=== PATIENT | female | born 1990 | race Caucasian/White ===

== ENCOUNTER 2018-02-14 14:18 | Inpatient (IN) | payer OTHER ==
[2018-02-14] MEDS ORDERED: LIDOCAINE 1% (MPF) 30 ML INJ INJ (16:30)
[2018-02-14] MEDS ORDERED: BUTORPHANOL 2 MG INJ IV (16:30)
[2018-02-14] MEDS ORDERED: METHYLERGONOVINE 0.2 MG INJ IM (16:30)
[2018-02-14] MEDS ORDERED: OXYTOCIN 30 UNITS/LR 500 ML IV (16:30)
[2018-02-14] MEDS ORDERED: OXYCODONE/ASPIRIN (4.88/325) TAB PO (16:30)
[2018-02-14] MEDS ORDERED: MISOPROSTOL 200 MCG TAB PR (16:30)
[2018-02-14] MEDS ORDERED: CARBOPROST 250 MCG INJ IM (16:30)
[2018-02-14 17:20] LABS: RUPTURE FETAL MEMBRANES POSITIVE (NEGATIVE)
[2018-02-14] MEDS: LACTATED RINGER'S 1,000 ML IV ×2 (17:59→23:15)
[2018-02-14 18:55] LABS: ADD MAN DIFF? NO
[2018-02-14] MEDS: OXYTOCIN 30 UNITS/LR 500 ML IV (18:56)
[2018-02-14 19:02] LABS: BASOPHILS % 0.2 % (0.0-2.0); EOSINOPHILS % 0.4 % (0.0-7.0); HEMATOCRIT 37.4 % (37.0-47.0); HEMOGLOBIN 12.3 g/dl (12.0-16.0); LYMPHOCYTES % 12.4 % (15.0-51.0); MEAN CORPUSCULAR HEMOGLOBIN 28.8 pg (29.0-33.0); MEAN CORPUSCULAR HGB CONC 32.9 g/dl (32.0-37.0); MEAN CORPUSCULAR VOLUME 87.6 fl (82.0-101.0); MEAN PLATELET VOLUME 11.7 fl (7.4-10.4); MONOCYTE # 0.5 10^3/ul (0.3-0.9); MONOCYTES % 6.2 % (0.0-11.0); NEUTROPHIL # 6.6 10^3/ul (1.6-7.5); NEUTROPHILS % 80.4 % (39.0-77.0); PLATELET COUNT 134 10^3/UL (140-415); RED BLOOD COUNT 4.27 10^6/ul (4.20-5.40); RED CELL DISTRIBUTION WIDTH 13.5 % (11.5-14.5)
[2018-02-14 19:02] LABS: WHITE BLOOD COUNT 8.2 10^3/ul (4.8-10.8)
[2018-02-14 19:21] LABS: PROTIME 12.2 Sec (11.9-14.9)
[2018-02-14 19:22] LABS: PARTIAL THROMBOPLASTIN TIME 27.5 Sec (23.0-35.0)
[2018-02-15] MEDS ORDERED: LACTATED RINGER'S 1,000 ML IV (02:15)
[2018-02-15] MEDS ORDERED: FENTAnyl 2MCG/ML-ROPIV 0.2% 100 ML (02:21)
[2018-02-15] MEDS ORDERED: NALOXONE (0.4 MG/ML) INJ IV (02:30)
[2018-02-15] MEDS ORDERED: ONDANSETRON 4 MG INJ IV (02:30)
[2018-02-15] MEDS ORDERED: DIPHENHYDRAMINE 50 MG INJ IV (02:30)
[2018-02-15] MEDS: LACTATED RINGER'S 1,000 ML IV (06:58)
[2018-02-15] MEDS: FENTAnyl 2MCG/ML-ROPIV 0.2% 100 ML BAG EPI ×2 (08:13→09:01)
[2018-02-15] MEDS ORDERED: AMPICILLIN 2 GM/NS (PMX) 100 ML (09:53)
[2018-02-15] MEDS: AMPICILLIN 2 GM/NS (PMX) 100 ML IV (10:00)
[2018-02-15] MEDS: MINERAL OIL LIGHT 10 ML VIAL TOP (12:00)
[2018-02-15] MEDS ORDERED: AMPICILLIN 1 GM/NS (PMX) 50 ML IV (14:00)
[2018-02-15] MEDS: OXYTOCIN 30 UNITS/LR 500 ML IV ×3 (14:23→18:31)
[2018-02-15] MEDS: IBUPROFEN 600 MG TAB PO ×4 (15:17→23:42)
[2018-02-15] MEDS ORDERED: ZOLPIDEM 5 MG TAB PO (17:30)
[2018-02-15] MEDS ORDERED: OXYCODONE/ASPIRIN (4.88/325) TAB PO ×2 (17:30)
[2018-02-15] MEDS ORDERED: CARBOPROST 250 MCG INJ IM (17:30)
[2018-02-15] MEDS ORDERED: METHYLERGONOVINE 0.2 MG INJ IM (17:30)
[2018-02-15] MEDS ORDERED: OXYTOCIN 30 UNITS/LR 500 ML IV (17:30)
[2018-02-15] MEDS ORDERED: MISOPROSTOL 200 MCG TAB PR (17:30)
[2018-02-15] MEDS: WITCH HAZEL/GLYCERIN PAD PR (18:24)
[2018-02-15] MEDS: BENZOCAINE 20% 56 ML SPRAY TOP (18:24)
[2018-02-15] MEDS: LANOLIN HPA 1 PKT TOP (18:24)
[2018-02-15] MEDS: SENNA/DOCUSATE NA (8.6MG/50MG) TAB PO (20:29)
[2018-02-15 21:08] LABS: RAPID PLASMA REAGIN NONREACTIVE (NR)
[2018-02-16] MEDS: IBUPROFEN 600 MG TAB PO ×4 (05:37→23:30)
[2018-02-16 07:26] LABS: ADD MAN DIFF? NO
[2018-02-16 07:32] LABS: BASOPHILS % 0.3 % (0.0-2.0); EOSINOPHILS # 0.1 10^3/ul (0.0-0.5); HEMATOCRIT 31.4 % (37.0-47.0); HEMOGLOBIN 10.6 g/dl (12.0-16.0); LYMPHOCYTES # 0.9 10^3/ul (0.8-2.9); LYMPHOCYTES % 9.7 % (15.0-51.0); MEAN CORPUSCULAR HEMOGLOBIN 29.7 pg (29.0-33.0); MEAN CORPUSCULAR HGB CONC 33.8 g/dl (32.0-37.0); MEAN PLATELET VOLUME 11.7 fl (7.4-10.4); MONOCYTE # 0.7 10^3/ul (0.3-0.9); MONOCYTES % 7.4 % (0.0-11.0); NEUTROPHIL # 7.3 10^3/ul (1.6-7.5); NEUTROPHILS % 81.2 % (39.0-77.0); PLATELET COUNT 121 10^3/UL (140-415); RED BLOOD COUNT 3.57 10^6/ul (4.20-5.40); RED CELL DISTRIBUTION WIDTH 13.6 % (11.5-14.5)
[2018-02-16 07:32] LABS: WHITE BLOOD COUNT 8.9 10^3/ul (4.8-10.8)
[2018-02-16] MEDS: SENNA/DOCUSATE NA (8.6MG/50MG) TAB PO ×2 (08:25→21:41)
[2018-02-16] MEDS: LACTATED RINGER'S 1,000 ML IV ×3 (20:56→20:58)
[2018-02-17] MEDS: LACTATED RINGER'S 1,000 ML IV (02:13)
[2018-02-17] MEDS: IBUPROFEN 600 MG TAB PO ×2 (05:52→11:25)
[2018-02-17] MEDS: SENNA/DOCUSATE NA (8.6MG/50MG) TAB PO (08:59)
[2018-02-17] MEDS: DIPHTH/TET/ACEL PERTUSS (ADULT) 0.5 ML VIAL IM* (09:03)
== END 2018-02-17 15:43 | disposition home or self-care (01) | DRG 807 ==
LOC: OBT 14:18 → PP1 02-15 17:00 → L-D 14:18 → OBT 16:15 → L-D 16:15
PROVIDERS: Obstetrics & Gynecology
PROC: 10E0XZZ Delivery of Products of Conception, External Approach (ICD-10-PCS; principal; 2018-02-15)
PROC: 0W8NXZZ Division of Female Perineum, External Approach (ICD-10-PCS; 2018-02-15)
DX: O48.0 Post-term pregnancy (principal); Z37.0 Single live birth; Z3A.40 40 weeks gestation of pregnancy
CPT/HCPCS: 62319; 76815; 84112; 85025; 85610; 85730; 86592; 86850; 86900; 86901